=== PATIENT | male | born 1990 | race Caucasian/White ===

== ENCOUNTER 2025-03-28 10:35 | Emergency (ER) | payer BC, SELFPAY ==
[2025-03-28 10:57] VITALS: BP 132/85; PULSE 100; RESP 19; TEMP 37.6; O2SAT 100
[2025-03-28 11:11] LABS: EDCOVIDSCREEN Negative (Negative); EDINFLUASCREEN Negative (Negative); EDINFLUBSCREEN Negative (Negative); EDSTREPNEGPOS1 Negative (Negative)
--- NOTE | 2025-03-28 11:19 | ED_ITS ---
HPI - General Adult General Chief complaint: Upper Respiratory Infection Stated complaint: Cold Symptoms Source: patient Mode of arrival: ambulatory Limitations: no limitations History of Present Illness HPI narrative: Patient presents for evaluation of sick symptoms for the last 4 days. Symptoms include sore throat, cough, chills, weakness and nausea. He denies any fever, shortness of breath and diarrhea. He believes he was exposed to a sick coworker at the time of shift handoff. He has been taking ibuprofen, DayQuil and NyQuil for his symptoms. He missed work today and plans to stay home tomorrow. He wo uld like a note to excuse him from work. Related Data Allergies Allergy/AdvReac Type Severity Reaction Status Date / Time No Known Allergies Allergy Unknown Verified 03/28/25 10:54 Review of Systems Review of Systems: CONSTITUTIONAL: Reports weakness and chills. Denies fever EYES: Denies visual changes, redness, or discharge. ENT: Reports sore throat CARDIOVASCULAR: Denies chest pain, palpitations, or edema. RESPIRATORY: Reports cough. Denies SOB GASTROINTESTINAL: Reports nausea. Denies abdominal pain, vomiting, or diarrhea. GENITOURINARY: Denies dysuria or hematuria. SKIN: Denies rash or itching. MUSCULOSKELETAL: Denies back pain, joint pain, or myalgia. NEUROLOGIC: Denies headache, numbness, dizziness, or weakness. PSYCHIATRIC: Denies anxiety or depression. PMFSH Past Medical History Medical History No pertinent past medical history Surgical History Surgical History No pertinent past surgical history Family History Family History Mother Family history non-contributory Social History Social History Smoking status: Never smoker Additional occupation/education comments: Works for [employer] Gender identity (if verbalized by the patient): Male Spiritual care concerns: No Exam Narrative: GENERAL: Well-appearing, well-nourished, and in no acute distress. HEAD: Normocephalic, atraumatic. EYES: PERRLA and EOMI. ENT: Nares clear, no rhinorrhea or epistaxis. Mucous membranes moist. Oropharynx without tonsillar hypertrophy exudate or other lesions, however there is posterior pharyngeal erythema. Bilateral TMs pearly hernandez nonbulging NECK: Supple. No adenopathy or masses. No carotid bruits or JVD CHEST: Clear to auscultation. No respiratory distress. No wheezes rales or rhonchi HEART: Regular rate and rhythm. No murmur heard. Normal peripheral pulses. ABDOMEN: Soft, nontender, nondistended, normal active bowel sounds. EXTREMITIES: Normal range of motion. No edema. SKIN: Warm, dry, no rash. NEURO: No focal deficits. Alert and oriented x3. PSYCH: Normal mood and affect. Course Course Emergency Course: This is a 34-year-old male who presented for evaluation of sick symptoms. COVID, influenza, strep were negative will send throat culture. Through shared decision making opted to proceed with antibiotic therapy. Will discharge with augmentin. Increase fluid intake. OTC agents for symptom management. Follow up with primary provider. Go to the ER for worsening symptoms. Pt in agreement with plan of care. Level of Care: Express Care Visit Vital Signs Vital signs: Vital Signs Temperature 37.6 C 03/28/25 10:57 Pulse Rate 100 03/28/25 10:57 Respiratory Rate 19 03/28/25 10:57 Blood Pressure 132/85 03/28/25 10:57 Pulse Oximetry 100 03/28/25 10:57 Oxygen Delivery Room Air 03/28/25 10:57 Temperature 37.6 C 03/28/25 10:57 Pulse Rate 100 03/28/25 10:57 Respiratory Rate 19 03/28/25 10:57 Blood Pressure 132/85 03/28/25 10:57 Pulse Oximetry 100 03/28/25 10:57 Oxygen Delivery Room Air 03/28/25 10:57 MDM Differential Diagnosis Differential Diagnosis: flu versus COVID versus influenza versus other viral illness versus other Lab Data Labs: Lab Results 03/28/25 Range/Units 11:09 POC Influenza A Ag Negative (Negative) POC Influenza B Ag Negative (Negative) POC SARS CoV-2 Ag Negative (Negative) POC Grp A Strep Screen Negative (Negative) Discharge Plan Discharge Clinical Impression: Pharyngitis Patient Disposition: Home Condition: Stable Instructions: Antibiotic Form, Pharyngitis (ED) Patient Language: Luxembourgish Prescriptions: New amoxicillin-pot clavulanate 875-125 mg tablet 1 tablet PO Q12H Qty: 20 0RF Follow-up/Referrals: Maxim Badillo MD [Primary Care Provider, Family Practice] Stand Alone Forms: Work/School Release IP Time of Disposition: 11:18
== END 2025-03-28 11:32 | disposition home or self-care (01) ==
PROVIDERS: Emergency Provider Nurse Practitioner; PCP Emergency Medicine
DX: J02.9 Acute pharyngitis, unspecified (principal); Z20.822 Contact with and (suspected) exposure to COVID-19
CPT/HCPCS: 87081; 87426; 87804; 87880; 99203; G0463